=== PATIENT | female | born 1970 | race Caucasian/White ===

== ENCOUNTER → 2016-06-25 | Outpatient (CLI) | payer OTHER ==
--- NOTE | 2016-06-25 15:50 | MA ---
Screening Digital Mammogram with iCAD Analysis Clinical Indications: 45-year-old female who presents for routine baseline mammographic screening cheryl campa. The patient has a personal history of a leg melanoma, and there is no family history of mayra st cancer. Technique: Standard cephalocaudal projections are obtained. Digital breast tomosynthesis was performe d in the MLO projection, with reconstruction at a 1.0 mm slice thickness, and composite MLO views rec onstructed. This examination is processed by the iCAD computer aided detection system. Comparison Studies: None. Breast Density: Type B (Scattered fibroglandular densities). Findings: CAD was reviewed. There are no masses, suspicious microcalcifications, or secondary signs o f malignancy identified. Impression: Negative mammography. BI-RADS Category 1. Recommendation: Routine mammographic screening in one year. [facility] will send a result letter to the patient. Negative mammography should not preclude additional workup of a clinically suspicious finding. The patient's information is entered into a reminder system with a target due date for her next mammo gram.
== END ==
LOC: FIMAGING 14:37
DX: Z12.31 Encounter for screening mammogram for malignant neoplasm of breast (principal)
CPT/HCPCS: G0202